=== PATIENT | male | born 1940 | race Caucasian/White ===

== ENCOUNTER 2023-06-08 13:08 | Emergency (ER) | payer MEDICARE ==
[~2023-06-08] VITALS: Ht 165.1 cm; Wt 72.6 kg
[2023-06-08 13:36] VITALS: BP 196/92; TEMP 98.1; O2SAT 98
== END 2023-06-08 13:36 | disposition home or self-care (01) ==
LOC: ER 13:08
DX: I10 Essential (primary) hypertension (principal)